=== PATIENT | female | born 1950 | race Caucasian/White ===

== ENCOUNTER 2017-07-15 06:34 | Day surgery (SDC) | payer MEDICARE, BC ==
[~2017-07-15 06:34] MED LIST: AMBIEN5 MG PO; ANUCORT-HC25 MG RE; ASPIRIN LOW DOS81 M2 PO; ASTELIN NASA137 MCG NAB; ATIVAN0.5 MG PO; AUGMENTIN875TAB OR; BYSTOLIC10 MG PO; BYSTOLIC20 MG PO; C 250 PO; CELEXA20 M1 PO; CHILD ASA LS81 MG OR; CIPROFLOXACN500 MG PO; DIOVAN40 MG PO; DYRENIUM50 MG OR; FLUZONE SPLT1 M1 IM; HYDROCHLOROT25 MG OR; HYDROCHLOROT25 MG PO; LEXAPRO10 MG PO; LEXAPRO20 MG OR; LOTRISONE CREAM15 G1 EX; MECLIZINE25 MG; MECLIZINE25 MG OR; MECLIZINE25 MG PO; MEDDOSEPAK PO; METOPROL TAR50 MG OR; MINIPRESS2 MG OR; MULTI VIT OR; MULTIVITAMI1 PO; OMEGA-3 FISH1000 MG OR; ROBITUSSIN AC10 ML PO; ROCEPHIN 1 GM1 GM IM; SPIRONOLACT25 MG PO; SPIRONOLACT50 M1 PO; TRICOR48 MG OR; TYLENOL 500MG TAB PO; VENTOLIN HFA IN; WELLBUTRIN SR150 MG PO; XANAX0.5 MG PO; ZETIA10 MG PO; ZITHROMAX500 MG PO; ZOLPIDEM10 MG OR
[2017-07-15 08:52] VITALS: BP 122/68
== END 2017-07-15 09:38 | disposition home or self-care (01) ==
LOC: ENDO 06:34
PROVIDERS: ATTEND Surgery
PROC: 0DJD8ZZ Inspection of Lower Intestinal Tract, Via Natural or Artificial Opening Endoscopic (ICD-10-PCS; principal; 2017-07-15)
DX: Z12.11 Encounter for screening for malignant neoplasm of colon (principal); K57.30 Diverticulosis of large intestine without perforation or abscess without bleeding; I10 Essential (primary) hypertension
CPT/HCPCS: G0121

== ENCOUNTER → 2017-11-19 | Outpatient (REF) | payer MEDICARE, BC | END | disposition home or self-care (01) | LOC: BD 13:31 | PROVIDERS: ATTEND Internal Medicine | DX: N95.1 Menopausal and female climacteric states (principal) ==

== ENCOUNTER → 2018-04-15 | Outpatient (REF) | payer MEDICARE, BC | END | disposition home or self-care (01) | LOC: ULTRASND 10:41 | PROVIDERS: ATTEND Nurse Practitioner Family | DX: M79.621 Pain in right upper arm (principal) ==